=== PATIENT | male | born 1940 | race Asian ===

== ENCOUNTER → 2017-04-30 | Emergency (ER) | payer MEDICARE, MEDICAID ==
[~2017-04-30] VITALS: Ht 165.1 cm; Wt 68.0 kg
[~2017-04-30] MED LIST: IBUPROFEN400 MG ORAL
[2017-04-30 15:55] VITALS: BP 123/78
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
--- NOTE | 2017-04-30 16:51 | Diagnostic Imaging Report ---
Indication: Headache Technique: Contiguous 5 mm thick transaxial imaging of the head obtained in a Siemens Sensation [address] scanner. Soft tissue and bone windows generated. Total Dose length Product (DLP): [address] Dose Index Volume (CTDIvol): 70.38 mGy Comparison: none Findings: There is mild prominence of the ventricles, basal cisterns, and cerebral sulci consistent with atrophy. Moderate, nonspecific, white matter hypoattenuation is noted throughout the brain consistent with chronic small vessel disease. There is no midline shift, edema, acute hemorrhage, mass effect, or abnormal extra-axial fluid collections. Bones and extra osseous soft tissues are unremarkable. Impression: No acute intracranial bleed, mass effect or edema. Mild atrophy of the brain. Moderate white matter hypoattenuation probably due to chronic small vessel disease. The CT scanner at [facility] is accredited by the [employer] and the scans are performed using dose optimization techniques as appropriate to a performed exam including Automatic Exposure control.
--- NOTE | 2017-04-30 16:57 | Diagnostic Imaging Report ---
Indication: Chest pain Comparison: None A single view chest radiograph was obtained. Findings: No definite infiltrate or pulmonary vascular congestion identified. The heart is borderline enlarged. The aorta is mildly enlarged consistent with atherosclerotic vascular disease. The bones are osteopenic. Impression: No acute disease
[2017-04-30 17:14] VITALS: BP 123/78
--- NOTE | 2017-05-01 09:03 | Diagnostic Imaging Report ---
Indication: Pain Findings: 3 views of the left shoulder were obtained. There is no fracture or malalignment identified. The bones are osteopenic. There is a trace focus of calcium at the rotator cuff insertion consistent with rotator cuff tendinopathy. Aorta is ectatic and calcified. Impression: No acute injury.
--- NOTE | 2017-05-01 09:03 | Diagnostic Imaging Report ---
Indication: Neck pain. Technique: Continuous helical imaging of the cervical spine was obtained transaxially from the skull base to the upper thoracic spine. 2-D coronal and sagittal reformatted images were obtained. Total Dose length Product (DLP): [address] Dose Index Volume (CTDIvol): 20 mGy Comparison: None Findings: There is no acute fracture or malalignment identified. There is no soft tissue swelling identified. Moderate uncovertebral arthritis is demonstrated at multiple levels. Consequently there is narrowing of the neural foramen bilaterally at C3-4 (right worse on left), on the left side at C4-5, bilaterally at C5-6, on the left side at C6-7. Some of the intervertebral discs show narrowing and osteophytes especially C6-7. There is some elevation of the carotid bifurcations bilaterally. Impression: No acute injury Moderate spondylosis Atherosclerotic disease The CT scanner at [facility] is accredited by the [employer] and the scans are performed using dose optimization techniques as appropriate to a performed exam including Automatic Exposure control.
== END | disposition home or self-care (01) ==
LOC: EDBD 15:54 → EMR 16:19
DX: S13.9XXA Sprain of joints and ligaments of unspecified parts of neck, initial encounter (principal); M47.892 Other spondylosis, cervical region; V43.52XA Car driver injured in collision with other type car in traffic accident, initial encounter; Y93.9 Activity, unspecified; Y92.410 Unspecified street and highway as the place of occurrence of the external cause; M25.512 Pain in left shoulder
CPT/HCPCS: 70450; 71010; 72125; 99284